=== PATIENT | male | born 1975 | race African-American/Black ===

== ENCOUNTER 2016-09-11 06:37 | Day surgery (SDC) | payer BC ==
[~2016-09-11 06:37] MED LIST: Buffered Lidocaine 1% SYR 3ML* 3 ML/SYR SYRINGE INTRADERM ONE; Famotidine IV* 10 MG/ML 2 ML (20 mg) IV ONE
[2016-09-11] MEDS ORDERED: ceFAZolin 2 GM PREMIX (*) 2 GM/50 ML BAG IVPB ONE (06:46)
[2016-09-11] MEDS ORDERED: Famotidine IV* 10 MG/ML 2 ML (20 mg) ONE (06:47)
[2016-09-11] MEDS ORDERED: Lidocaine 1% INJ* 10 MG/ML 30 ML SDV ONE (06:57)
[2016-09-11] MEDS ORDERED: Bupivacaine 0.5% SDV PF* 30 ML VIAL ONE (06:57)
[2016-09-11] MEDS ORDERED: Dexamethasone IV* 4 MG/ML 1 ML (4 MG) ONE (07:25)
[2016-09-11] MEDS ORDERED: Midazolam* 1 MG/ML 2 ML VIAL (2 MG) ONE (07:36)
[2016-09-11] MEDS ORDERED: fentaNYL* 50 MCG/ML 2 ML VIAL (100 MCG VIAL) ONE (07:36)
[2016-09-11] MEDS ORDERED: Lidocaine 2% PF * 5 ML VIAL ONE (07:37)
[2016-09-11] MEDS ORDERED: Propofol* 10 MG/ML 20 ML BTL IV PUSH ONE (07:37)
[2016-09-11] MEDS ORDERED: Ketorolac INJ* 30 MG/ML 1 ML VIAL ONE (07:37)
[2016-09-11] MEDS ORDERED: KETAMINE HCL* 50 MG/ML 10 ML VIAL ONE (08:08)
[2016-09-11] MEDS ORDERED: DiMENhydriNATE IV* 50 MG/ML VIAL IV PUSH PRN (08:16)
[2016-09-11] MEDS ORDERED: Acetaminophen TAB* 325 MG PO PRN (08:16)
[2016-09-11] MEDS ORDERED: HYDROcodone/ACETAMIN 5-325 MG* 1 TAB PO PRN (08:16)
[2016-09-11] MEDS ORDERED: Ondansetron INJ* 2 MG/ML VIAL IV PRN (08:16)
[2016-09-11 08:41] VITALS: BP 161/102
--- NOTE | 2016-09-11 12:50 | OP ---
DATE OF OPERATION: 09/11/16 - [facility] DATE OF : 77 SURGEON: Arturo Stuart DPM DIABETES EDUCATOR: None. ANESTHESIOLOGIST: Dr. Hahn ANESTHESIA: MAC with local. PRE-OP DIAGNOSIS: Painful soft tissue mass in the plantar aspect of left arch. POST-OP DIAGNOSIS: Painful soft tissue mass in the plantar aspect of left arch. 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 OPERATIVE PROCEDURE: INDICATIONS: The patient with changing and painful soft tissue mass on the plantar medial aspect of his left arch. MRI recently demonstrated significantly enhancing plantar fibromatosis and tissue sampling for histological assessment was suggested for confirmation. The patient is agreeable to this action. PATHOLOGY: Longitudinally oriented wedge tagged distally. HEMOSTASIS: Pneumatic ankle tourniquet. ESTIMATED BLOOD LOSS: Less than 3 cc. DESCRIPTION OF PROCEDURE: The patient was brought to the operating room, placed on the operating room table in supine position. The anesthesia department administered IV sedation and a peripheral nerve block was performed about the left plantar foot with a 1:1 mixture of 1% lidocaine plain and 0.5% Marcaine plain. The left foot was prepped and draped in the usual fashion. An Esmarch bandage was used to exsanguinate the left foot and the pneumatic ankle tourniquet was inflated to 250 mmHg about a well-padded left ankle. Attention was directed to the plantar medial left arch, where the soft tissue mass was both visible and palpable. A curvilinear transversely oriented incision was made following the natural skin line as much as possible. Incision was deepened into the subcutaneous tissues and blunt dissection was carried to free soft tissue to allow for exposure of the plantar mass, which was readily identified. It was not adherent to the dermis and seemed to be directly adhered to or interstitially connected to the medial band of plantar fascia. A longitudinally oriented wedge was excised and tagged distally for histological assessment. The surgical site was flushed with copious amounts of normal sterile saline. Subcutaneous tissues were reapproximated with 4-0 Polysorb and skin was reapproximated with 4-0 nylon. The incision was then dressed with Xeroform gauze and a padded sterile dressing was applied with 4x4 gauze, Alessia, and light Coban wrap. The pneumatic ankle tourniquet was deflated about the left ankle and a prompt hyperemic response was noted about all 5 digits of the patient's left foot. Having appeared to have tolerated the procedure and anesthesia well, the patient was transported via cart from the operating room to Recovery in satisfactory condition with cap refill less than 3 seconds to all digits of the left foot. [id number]/[id number] #: [id number] MTDD
== END 2016-09-11 09:30 | disposition home or self-care (01) ==
LOC: OREAST 06:37
PROVIDERS: ATTEND Podiatrist Foot Surgery
DX: M72.2 Plantar fascial fibromatosis (principal); I10 Essential (primary) hypertension
CPT/HCPCS: 88305; J0690; J1100; J1885; J2250; J2704; J3010

== ENCOUNTER 2018-01-08 17:47 | Emergency (ER) | payer OTHER ==
[2018-01-08] MEDS ORDERED: Aspirin 81 mg CHEW TAB* 81 MG TAB.CHEW PO ONE (18:34)
--- NOTE | 2018-01-08 18:45 | RAD ---
INDICATION: Chest pain. COMPARISON: None. TECHNIQUE: Single AP portable view of the chest was obtained. FINDINGS: Image quality is compromised due to the relative inferiority of a portable chest x-ray. The heart and mediastinum exhibit normal size and contour. The lungs are grossly clear. There is no evidence of a large pleural effusion. Visualized bones are normal for the patient's age. IMPRESSION: No radiographic evidence for acute cardiopulmonary abnormality on this portable chest x-ray.
[2018-01-08 18:59] LABS: ABS Basophils 0.1 10^3/ul (0-0.2); ABS Eosinophils 0.3 10^3/ul (0-0.6); ABS Lymphocytes 2.5 10^3/ul (1.0-4.8); ABS Monocytes 0.5 10^3/ul (0-0.8); ABS Neutrophils 2.6 10^3/ul (1.5-7.7); ABS Nucleated RBC 0 10^3/ul; Eosinophil % 5.5 % (0-6); Hematocrit 42 % (42-52); Hemoglobin 14.3 g/dl (14.0-18.0); Lymphocyte % 41.2 % (25-47); Mean Corpuscular HGB Conc 34 g/dl (31-36); Mean Corpuscular Hemoglobin 28 pg (27-31); Mean Corpuscular Volume 83 fL (80-94); Mean Platelet Volume 9.6 um3 (7.4-10.4); Nucleated Red Blood Cells % 0.6; Platelet Count 136 10^3/ul (150-450); Red Blood Count 5.07 10^6/ul (4.00-5.40); Red Cell Distribution Width 15 % (10.5-15)
--- NOTE | 2018-01-08 19:35 | ED ---
HPI Chest Pain - HPI Summary HPI Summary: Patient sent by his convenient care to ED for further evaluation of sternal chest pain. Patient describes chest pain is intermittent, lasting seconds at a time and then repeating every 30 seconds. Symptoms started a week ago, with occasional episodes of repeating flashes of chest pain. Episodes have been getting gradually more persistent. Patient states symptoms started at 5 AM this morning and have remained persistent through the day. CP described as pressure, 8/10, no radiation. Patient walks regularly, denies any recent CP or SOB with exertion. CP not worse with exertion, not better with rest. Denies trauma, SOB, N/V, diaphoresis, fever, cough, sore throat, abdominal pain, change in urinary BM. Denies prior cardiac history or pulmonary history. Medical history is HTN. Negative family history. Nonsmoker. Denies illegal drug use. - History of Current Complaint Chief Complaint: EDChestPainROMI Time Seen by Provider: 01/08/18 18:21 Hx Obtained From: Patient Onset/Duration: Started Days Ago Timing: Intermittent Initial Severity: Mild Current Severity: Moderate Pain Intensity: 8 Pain Scale Used: 0-10 Numeric Chest Pain Location: Discrete at:, Lower Sternal Chest Pain Radiates: No Character: Pressure/Squeezing Aggravating Factor(s): Nothing Alleviating Factor(s): Nothing Associated Signs and Symptoms: Positive: Chest Pain - Risk Factors Pulmonary Embolism Risk Factors: Negative AMI/ACS Risk Factors: Hypertension - Allergy/Home Medications Allergies/Adverse Reactions: Allergies Allergy/AdvReac Type Severity Reaction Status Date / Time No Known Allergies Allergy Verified 01/08/18 17:23 Home Medications: Home Medications amLODIPine TAB* [Norvasc 5 mg TAB*] 5 mg PO DAILY WITH MEAL 01/08/18 [History Confirmed 01/08/18] PMH/Surg Hx/FS Hx/Imm Hx Endocrine/Hematology History: Denies: Hx Diabetes, Hx Thyroid Disease Cardiovascular History: Reports: Hx Hypertension - ON MEDS Denies: Hx Congestive Heart Failure, Hx Deep Vein Thrombosis, Hx Myocardial Infarction, Hx Pacemaker/ICD Respiratory History: Denies: Hx Asthma, Hx Chronic Obstructive Pulmonary Disease (COPD), Hx Lung Cancer, Hx Pneumonia, Hx Pulmonary Embolism GI History: Denies: Hx Gall Bladder Disease, Hx Gastrointestinal Bleed, Hx Ulcer, Hx Urosepsis History: Denies: Hx Dialysis, Hx Kidney Stones, Hx Renal Disease Sensory History: Denies: Hx Contacts or Glasses, Hx Hearing Aid Opthamlomology History: Denies: Hx Contacts or Glasses EENT History: Denies: Hx Deafness Neurological History: Denies: Hx Dementia, Hx Migraine, Hx Seizures, Hx Transient Ischemic Attacks (TIA) Psychiatric History: Denies: Hx Anxiety, Hx Depression, Hx Panic Disorder, Hx Schizophrenia, Hx Bipolar Disorder - Surgical History Surgery Procedure, Year, and Place: HERNIA 2012 Hx Anesthesia Reactions: No Infectious Disease History: No Infectious Disease History: Denies: Traveled Outside the [place] in Last 30 Days - Family History Known Family History: Positive: Hypertension - Social History Alcohol Use: None Substance Use Type: Reports: None Smoking Status (MU): Never Smoked Tobacco Review of Systems Constitutional: Negative Eyes: Negative ENT: Negative Positive: Chest Pain Respiratory: Negative Gastrointestinal: Negative Genitourinary: Negative Musculoskeletal: Negative Skin: Negative Neurological: Negative Psychological: Normal All Other Systems Reviewed And Are Negative: No Physical Exam - Summary Physical Exam Summary: Lower sternal chest pain is reproducible with palpation. No ecchymosis, deformity, swelling, erythema noted to area. Lung sounds clear to auscultation bilaterally. Triage Information Reviewed: Yes Vital Signs On Initial Exam: Initial Vitals Temp Pulse Resp BP Pulse Ox 98.2 F 72 16 165/104 99 01/08/18 18:02 01/08/18 18:02 01/08/18 18:02 01/08/18 18:02 01/08/18 18:02 Vital Signs Reviewed: Yes Appearance: Positive: Well-Appearing Skin: Positive: Warm Head/Face: Positive: Normal Head/Face Inspection Eyes: Positive: Normal Neck: Positive: Supple Respiratory/Lung Sounds: Positive: Clear to Auscultation Cardiovascular: Positive: Normal Abdomen Description: Positive: Nontender Musculoskeletal: Positive: Normal Neurological: Positive: Normal Psychiatric: Positive: Normal AVPU Assessment: Alert - Carlos Coma Scale Best Eye Response: 4 - Spontaneous Best Motor Response: 6 - Obeys Commands Best Verbal Response: 5 - Oriented Coma Scale Total: 15 Diagnostics - Vital Signs Vital Signs Temp Pulse Resp BP Pulse Ox 01/08/18 19:11 66 17 154/102 96 01/08/18 19:00 66 24 99 01/08/18 18:56 67 15 177/105 98 01/08/18 18:11 72 12 179/106 98 01/08/18 18:02 98.2 F 72 16 165/104 99 - Laboratory Lab Results: Lab Results 01/08/18 01/08/18 01/08/18 Range/Units 18:52 18:52 18:52 WBC 6.0 (3.5-10.8) 10^3/ul RBC 5.07 (4.00-5.40) 10^6/ul Hgb 14.3 (14.0-18.0) g/dl Hct 42 (42-52) % MCV 83 (80-94) fL MCH 28 (27-31) pg MCHC 34 (31-36) g/dl RDW 15 (10.5-15) % Plt Count 136 L (150-450) 10^3/ul MPV 9.6 (7.4-10.4) um3 Neut % (Auto) 43.8 (38-83) % Lymph % (Auto) 41.2 (25-47) % Morrill % (Auto) 8.2 H (0-7) % Eos % (Auto) 5.5 (0-6) % Baso % (Auto) 1.3 (0-2) % Absolute Neuts (auto) 2.6 (1.5-7.7) 10^3/ul Absolute Lymphs (auto) 2.5 (1.0-4.8) 10^3/ul Absolute Monos (auto) 0.5 (0-0.8) 10^3/ul Absolute Eos (auto) 0.3 (0-0.6) 10^3/ul Absolute Basos (auto) 0.1 (0-0.2) 10^3/ul Absolute Nucleated RBC 0 10^3/ul Nucleated RBC % 0.6 Sodium 141 (135-145) mmol/L Potassium 3.3 L (3.5-5.0) mmol/L Chloride 104 (101-111) mmol/L Carbon Dioxide 29 (22-32) mmol/L Anion Gap 8 (2-11) mmol/L BUN 13 (6-24) mg/dL Creatinine 1.18 H (0.67-1.17) mg/dL Est GFR ( Amer) 82.3 (>60) Est GFR (Non-Af Amer) 68.0 (>60) BUN/Creatinine Ratio 11.0 (8-20) Glucose 98 (70-100) mg/dL Lactic Acid 1.1 (0.5-2.0) mmol/L Calcium 9.7 (8.6-10.3) mg/dL Total Bilirubin 0.60 (0.2-1.0) mg/dL AST 21 (13-39) U/L ALT 23 (7-52) U/L Alkaline Phosphatase 100 (34-104) U/L C-Reactive Protein 3.10 (<8.01) mg/L Total Protein 7.9 (6.4-8.9) g/dL Albumin 4.9 (3.2-5.2) g/dL Globulin 3.0 (2-4) g/dL Albumin/Globulin Ratio 1.6 (1-3) TSH Pending Result Diagrams: 01/08/18 18:52 01/08/18 18:52 Lab Statement: Any lab studies that have been ordered have been reviewed, and results considered in the medical decision making process. - Radiology cxr Xray Interpretation: No Acute Changes Radiology Interpretation Completed By: Radiologist - EKG 1 Cardiac Rate: NL EKG Rhythm: Sinus Rhythm ST Segment: Non-Specific Ectopy: None EKG Interpretation: within normal limits Chest Pain Course/Dx - Course Course Of Treatment: Patient sent by his convenient care to ED for further evaluation of sternal chest pain. Patient describes chest pain is intermittent , lasting seconds at a time and then repeating every 30 seconds. Symptoms started a week ago, with occasional episodes of repeating flashes of chest pain. Episodes have been getting gradually more persistent. Patient states symptoms started at 5 AM this morning and have remained persistent through the day. CP described as pressure, 8/10, no radiation. Patient walks regularly, denies any recent CP or SOB with exertion. CP not worse with exertion, not better with rest. Denies trauma, SOB, N/V, diaphoresis, fever, cough, sore throat, abdominal pain, change in urinary BM. Denies prior cardiac history or pulmonary history. Medical history is HTN. Negative family history. Nonsmoker. Denies illegal drug use. Lower sternal chest pain is reproducible with palpation. No ecchymosis, deformity, swelling, erythema noted to area. Lung sounds clear to auscultation bilaterally. PERC criteria negative. Vital signs within normal limits and stable. Labs and imaging unremarkable. 3 troponins negative. Heart score 3. No stress test performed over the weekend if patient admitted. Discussed patient with hospitalist and Dr. Guerrero. Highly Recommend follow-up with primary care for further evaluation and stress test. Patient has been advised to encourage to get arrange for stress test through primary care starting Thursday. Patient states he understands and agrees with plan - Diagnoses Provider Diagnoses: Chest pain Discharge - Sign-Out/Discharge Documenting (check all that apply): Discharge/Admit/Transfer - Discharge Plan Condition: Stable Disposition: HOME Patient Education Materials: Chest Pain (ED), Chest Wall Pain (ED) Referrals: Jojo Gustafson MD [Primary Care Provider] - Additional Instructions: Follow-up with primary care for possible stress test. Return to the ED for any new or worsening symptoms - Billing Disposition and Condition Condition: STABLE Disposition: Home
[2018-01-09] MEDS ORDERED: Nitroglycerin TAB 0.4 MG* 0.4 MG TAB SL ONE (01:05)
[2018-01-09] MEDS ORDERED: Acetaminophen TAB* 325 MG PO ONE (02:48)
[2018-01-09 04:10] VITALS: BP 147/92
== END 2018-01-09 04:27 | disposition home or self-care (01) ==
LOC: ED 17:47
DX: R07.89 Other chest pain (principal); I10 Essential (primary) hypertension; Z79.899 Other long term (current) drug therapy
CPT/HCPCS: 36415; 71045; 80053; 80307; 83605; 83880; 84443; 84484; 85025; 85379; 86140; 93005; 99284; A9270-GY